=== PATIENT | female | born 1960 | race Caucasian/White ===

== ENCOUNTER → 2019-06-18 | Outpatient (CLI) | payer BC, MEDICARE ==
[~2019-06-18] MED LIST: CATHETER FLUSH 10 ML SYR IV PRN; HOLD METFORMIN - RECEIVED CONTRAST 20 ML VIAL IV SCH; IOHEXOL 350 MG/ML 100 ML (OMNIPAQUE 350) VIAL IV ONE; NS 100 ML (IVPB) BAG IV ONE
[2019-06-18 09:19] LABS: BUN/CREATININE RATIO 23; CARBON DIOXIDE 29 MMOL/L (21-32); CHLORIDE 99 MMOL/L (98-107); GFR ESTIMATED > 60; POTASSIUM 4.1 MMOL/L (3.6-5.0); SODIUM 139 MMOL/L (135-145)
[2019-06-18 09:20] LABS: ALANINE AMINOTRANSFERASE 27 U/L (0-55); ALBUMIN 3.8 GM/DL (3.2-4.5); ALKALINE PHOSPHATASE 142 U/L (40-136); BILIRUBIN,TOTAL 0.2 MG/DL (0.1-1.0); CALCIUM 8.8 MG/DL (8.5-10.1); GLUCOSE 142 MG/DL (70-105); TOTAL PROTEIN 6.7 GM/DL (6.4-8.2)
--- NOTE | 2019-06-18 10:24 | Diagnostic Imaging Report ---
PROCEDURE: CT abdomen with and without contrast. TECHNIQUE: Multiple contiguous axial CT images of the abdomen were obtained prior to and after intravenous administration of iodinated contrast. Auto Exposure Controls were utilized during the CT exam to meet ALARA standards for radiation dose reduction. INDICATION: 20 years history of intermittent abdominal pain, history of pancreatic cyst and nonalcoholic hepatic steatosis. COMPARISON: No priors. FINDINGS: The liver density suggests a mild degree of fatty infiltration. No identifiable liver mass. The gallbladder is surgically absent. The bile ducts are not pathologically distended. There is a unilocular simple appearing cyst without septation, mural nodularity enhancing or soft tissue component within the pancreas and the tail measuring 2.2 cm in diameter. Given the history this is presumed a known finding. If prior outside studies are available for comparison and are submitted, an addendum addressing interval change or stability would be provided upon receipt. The pancreas appeared otherwise unremarkable. Its duct appeared unremarkable. The spleen, adrenals and kidneys are negative. There is no bowel obstruction. There is no abdominal ascites. No abdominal mesenteric or retroperitoneal lymphadenopathy. The lung bases appeared nonacute. The osseous structures are nonacute. IMPRESSION: 1. Likely mild fatty infiltration of the liver. 2. Unilocular appearing pancreatic parenchymal cyst is alluded to in the provided history. It is 2.2 cm today without obvious complexity. Correlation with priors would be helpful if available. Submission encouraged and an addendum would be provided. 3. No obstructive phenomenon, inflammatory process, soft tissue mass or acute appearing abnormalitiess. Dictated by: Dictated on workstation # [id number]
== END ==
LOC: LAB FS 08:18
PROVIDERS: ATTEND Internal Medicine
DX: K75.81 Nonalcoholic steatohepatitis (NASH) (principal)
CPT/HCPCS: 36415; 74170; 80053

== ENCOUNTER → 2019-06-18 | Outpatient (CLI) | payer MEDICARE ==
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
== END ==
LOC: RAD FS 08:29
PROVIDERS: ATTEND Orthopaedic Surgery
DX: Z48.89 Encounter for other specified surgical aftercare (principal); S92.002D Unspecified fracture of left calcaneus, subsequent encounter for fracture with routine healing; Z96.9 Presence of functional implant, unspecified
CPT/HCPCS: 73700

== ENCOUNTER → 2019-11-05 | Outpatient (CLI) | payer MEDICARE ==
--- NOTE | 2019-11-05 10:24 | Diagnostic Imaging Report ---
PROCEDURE: CT left lower extremity without contrast. TECHNIQUE: Multiple contiguous axial images were obtained through the left lower extremity without the use of intravenous contrast. Sagittal and coronal reformations were then performed. Auto Exposure Controls were utilized during the CT exam to meet ALARA standards for radiation dose reduction. INDICATION: Previous calcaneal fracture. Status post ORIF. COMPARISON: 06/18/2019 FINDINGS: Patient is status post previous ORIF of the left calcaneus. Orthopedic sideplate is again identified traversing the lateral margins of the calcaneal body. Orthopedic sideplate appears well opposed underlying calcaneus. Multiple anchor screws are also identified and appear well-seated. There is no periprosthetic lucency to suggest loosening. No unexpected radiopaque foreign bodies are identified. Nonacute comminuted fracture of the left calcaneus is also again seen. Fracture lines remain conspicuous. There has, however been interval progression of bridging callus formation and development of sclerotic change. This is most conspicuous involving the inferolateral margins of the fracture line (image 44, series 200 on today's exam, in comparison to image 42, series 200 on prior study). There is no new acute fracture or dislocation. Joint spaces remain intact. Overlying soft tissue structures show expected edema. No loculated fluid collections are identified. IMPRESSION: 1. Redemonstration postsurgical changes of prior ORIF of the left ankle. There is no evidence of hardware fracture or failure. 2. Comminuted fractures of the left calcaneus are again identified. Fracture fragments remain in stable position. There has been some partial interval healing when compared to prior exam. Dictated by: Dictated on workstation # [id number]
== END ==
LOC: RAD FS 09:16
PROVIDERS: ATTEND Orthopaedic Surgery
DX: S99.0 Physeal fracture of calcaneus (principal); Z96.9 Presence of functional implant, unspecified; Z96.662 Presence of left artificial ankle joint
CPT/HCPCS: 73700

== ENCOUNTER 2020-10-20 12:53 | Emergency (ER) | payer MEDICARE ==
[~2020-10-20] VITALS: Ht 157.4 cm; Wt 104.5 kg
[2020-10-20] MEDS ORDERED: morphine INJ 10 MG/ML 1ML (SYR OR VIAL) IVP STA (13:06)
[2020-10-20] MEDS ORDERED: ONDANSETRON 4 MG/2 ML (SDV) Z0FRAN IVP ONE (13:15)
[2020-10-20] MEDS ORDERED: NS IV 1000 ML 1,000 ML IV SCH ×2 (13:15→13:45)
[2020-10-20 13:17] LABS: HEMATOCRIT 47 % (35-52); HEMOGLOBIN 15.6 G/DL (11.5-16.0); MEAN CORPUSCULAR HEMOGLOBIN 30 PG (25-34); MEAN CORPUSCULAR HGB CONC 33 G/DL (32-36); MEAN CORPUSCULAR VOLUME 91 FL (80-99); MEAN PLATELET VOLUME 10.5 FL (7.4-10.4); NEUTROPHILS % (AUTO) 81 % (42-75); PLATELET COUNT 415 10^3/uL (130-400); WHITE BLOOD COUNT 24.3 10^3/uL (4.3-11.0)
[2020-10-20 13:18] LABS: BASOPHILS # (AUTO) 0.1 10^3/uL (0.0-0.1); BASOPHILS % (AUTO) 0 % (0-10); EOSINOPHILS # (AUTO) 0.3 10^3/uL (0.0-0.3); EOSINOPHILS % (AUTO) 1 % (0-10); LYMPHOCYTES # (AUTO) 2.7 X 10^3 (1.0-4.0); LYMPHOCYTES % (AUTO) 11 % (12-44); MONOCYTES # (AUTO) 1.6 X 10^3 (0.0-1.0); MONOCYTES % (AUTO) 7 % (0-12); NEUTROPHILS # (AUTO) 19.6 X 10^3 (1.8-7.8)
--- NOTE | 2020-10-20 13:28 | ED Abdominal Pain ---
General Chief Complaint: Abdominal/GI Problems Stated Complaint: EPIGASTRIC PAIN; VOMITING; DIARRHEA Source of Information: Patient Exam Limitations: No Limitations History of Present Illness Date Seen by Provider: Oct 20, 2020 Time Seen by Provider: 13:00 Initial Comments Patient is a 60-year-old female with history of chronic pancreatitis who presents with epigastric abdominal pain radiating to posterior back. Pain is described as sharp rated moderate to severe right and waxes and wanes. It is continuous but nonprogressive. Current episode started s yesterday morning.. Patient reports nausea and vomiting. She also reports watery stools. No fever chills, sweats. No recent antibiotics, travel or camping. Denies hematemesis coffee-ground emesis, melena, hematochezia. Pain feels similar in location pattern and severity as prior episodes of pancreatitis. Patient does have a history of calcified pseudocyst and is managed by [facility]. She states she takes hydrocodone's every 4 hours during the daytime and has an appointment to see her GI specialist at [facility] in 1 week. She was last evaluated at an outside ED 2 weeks ago for similar complaints and had a IV contrast CT of her abdomen pelvis performed at that time which showed known pseudocyst. Denies chest pain palpitations, shortness of breath. No fever cough, sore throat. No other acute symptoms or complaints. Timing/Duration: 1-2 Days Severity/Quality: Sharp Location: Other Radiation: Other Modifying Factors: Improves With Other Associated Symptoms: Other Allergies and Home Medications Allergies Coded Allergies: nitrofurantoin (Unverified Allergy, Mild, COUGH, 06/18/19) PNEUMONIA TYPE SYMPTOMS, CHOKING A LITTLE Sulfa (Sulfonamide Antibiotics) (Unverified Adverse Reaction, Unknown, 10/20/20) Patient Home Medication List Home Medication List Reviewed: Yes Review of Systems Review of Systems Constitutional: see HPI EENTM: See HPI Respiratory: See HPI Cardiovascular: See HPI Gastrointestinal: See HPI Genitourinary: See HPI Musculoskeletal: see HPI Skin: see HPI Psychiatric/Neurological: See HPI Endocrine: See HPI Hematologic/Lymphatic: See HPI All Other Systems Reviewed Negative Unless Noted: Yes Past Iikcisq-Ekuvmg-Kussjy Hx Past Med/Social Hx: Reviewed Nursing Past Med/Soc Hx Physical Exam Vital Signs Vital Signs - First Documented 10/20/20 12:56 Temp 36.8 Pulse 97 Resp 20 B/P (MAP) 154/77 (102) O2 Delivery Room Air Capillary Refill : Height/Weight/BMI Height: '" Weight: lbs. oz. kg; BMI Method: General Appearance: moderate distress HEENT: PERRL/EOMI, normal ENT inspection, pharynx normal Neck: non-tender, full range of motion, supple Respiratory: chest non-tender, lungs clear Cardiovascular: normal peripheral pulses, regular rate, rhythm Gastrointestinal: soft; No guarding, No rebound; tenderness; No hernia, No mass; other Extremities: normal range of motion, non-tender, normal inspection Back: normal inspection, no CVA tenderness, no vertebral tenderness Neurologic/Psychiatric: hydrogenation still operator II-XII nml as tested, no motor/sensory deficits, alert, oriented x 3, other Focused Exam Sepsis Stage: Ruled Out Lactate Level 10/20/20 13:50: Lactic Acid Level 1.40 Lactic Acid Level Laboratory Tests Test 10/20/20 13:50 Lactic Acid Level 1.40 MMOL/L (0.50-2.00) Progress/Results/Core Measures Results/Orders Lab Results Laboratory Tests Test 10/20/20 12:58 10/20/20 13:50 10/20/20 14:51 Range/Units White Blood Count 24.3 H 4.3-11.0 10^3/uL Red Blood Count 5.20 4.35-5.85 10^6/uL Hemoglobin 15.6 11.5-16.0 G/DL Hematocrit 47 35-52 % Mean Corpuscular Volume 91 80-99 FL Mean Corpuscular Hemoglobin 30 25-34 PG Mean Corpuscular Hemoglobin Concent 33 32-36 G/DL Red Cell Distribution Width 13.1 10.0-14.5 % Platelet Count 415 H 130-400 10^3/uL Mean Platelet Volume 10.5 H 7.4-10.4 FL Immature Granulocyte % (Auto) 0 % Neutrophils (%) (Auto) 81 H 42-75 % Lymphocytes (%) (Auto) 11 L 12-44 % Monocytes (%) (Auto) 7 0-12 % Eosinophils (%) (Auto) 1 0-10 % Basophils (%) (Auto) 0 0-10 % Neutrophils # (Auto) 19.6 H 1.8-7.8 X 10^3 Lymphocytes # (Auto) 2.7 1.0-4.0 X 10^3 Monocytes # (Auto) 1.6 H 0.0-1.0 X 10^3 Eosinophils # (Auto) 0.3 0.0-0.3 10^3/uL Basophils # (Auto) 0.1 0.0-0.1 10^3/uL Immature Granulocyte # (Auto) 0.1 0.0-0.1 10^3/uL Neutrophils % (Manual) 71 % Lymphocytes % (Manual) 14 % Monocytes % (Manual) 6 % Eosinophils % (Manual) 1 % Basophils % (Manual) 1 % Band Neutrophils 7 % Sodium Level 137 135-145 MMOL/L Potassium Level 4.3 3.6-5.0 MMOL/L Chloride Level 100 98-107 MMOL/L Carbon Dioxide Level 24 21-32 MMOL/L Anion Gap 13 5-14 MMOL/L Blood Urea Nitrogen 15 7-18 MG/DL Creatinine 0.68 0.60-1.30 MG/DL Estimat Glomerular Filtration Rate > 60 BUN/Creatinine Ratio 22 Glucose Level 190 H 70-105 MG/DL Calcium Level 8.6 8.5-10.1 MG/DL Corrected Calcium 8.5 8.5-10.1 MG/DL Total Bilirubin 0.5 0.1-1.0 MG/DL Aspartate Amino Transf (AST/SGOT) 50 H 5-34 U/L Alanine Aminotransferase (ALT/SGPT) 46 0-55 U/L Alkaline Phosphatase 174 H 40-136 U/L C-Reactive Protein 0.87 H <0.50 MG/DL Total Protein 7.1 6.4-8.2 GM/DL Albumin 4.1 3.2-4.5 GM/DL Lipase 34 8-78 U/L Lactic Acid Level 1.40 0.50-2.00 MMOL/L Urine Color YELLOW Urine Clarity CLEAR Urine pH 5.5 5-9 Urine Specific Clyde 1.010 L 1.016-1.022 Urine Protein NEGATIVE NEGATIVE Urine Glucose (UA) NEGATIVE NEGATIVE Urine Ketones NEGATIVE NEGATIVE Urine Nitrite NEGATIVE NEGATIVE Urine Bilirubin NEGATIVE NEGATIVE Urine Urobilinogen 0.2 < = 1.0 MG/DL Urine Leukocyte Esterase NEGATIVE NEGATIVE Urine RBC (Auto) NEGATIVE NEGATIVE Urine RBC NONE /HPF Urine WBC RARE /HPF Urine Squamous Epithelial Cells 0-2 /HPF Urine Crystals NONE /LPF Urine Bacteria NEGATIVE /HPF Urine Casts NONE /LPF Urine Mucus NEGATIVE /LPF Urine Culture Indicated NO My Orders Orders - DENNISE GLOVER DO Cbc With Automated Diff (10/20/20 13:06) Comprehensive Metabolic Panel (10/20/20 13:06) Lipase (10/20/20 13:06) Ua Culture If Indicated (10/20/20 13:06) Morphine Injection (Morphine Injection (10/20/20 13:06) Ondansetron Injection (Zofran Injectio (10/20/20 13:15) Ns Iv 1000 Ml (Sodium Chloride 0.9%) (10/20/20 13:15) Manual Differential (10/20/20 12:58) Hs C Reactive Protein (10/20/20 13:45) Lactic Acid Analyzer (10/20/20 13:45) Blood Culture (10/20/20 13:45) Ns Iv 1000 Ml (Sodium Chloride 0.9%) (10/20/20 13:45) Ct Abdomen/Pelvis W (10/20/20 13:48) Iohexol Injection (Omnipaque 350 Mg/Ml 1 (10/20/20 14:00) Received Contrast (Hold Metformin- Contr (10/20/20 14:00) Sodium Chloride Flush (Catheter Flush Sy (10/20/20 14:00) Ns (Ivpb) (Sodium Chloride 0.9% Ivpb Bag (10/20/20 14:00) Blood Culture (10/20/20 13:52) Crp Fs (10/20/20 14:06) Medications Given in ED Current Medications Medications Dose Ordered Sig/Keira Route Start Time Stop Time Status Last Admin Dose Admin Iohexol 100 ml ONCE ONCE IV 10/20/20 14:00 10/20/20 14:01 DC 10/20/20 14:15 100 ML Ondansetron HCl 4 mg ONCE ONCE IVP 10/20/20 13:15 10/20/20 13:16 DC 10/20/20 13:12 4 MG Sodium Chloride 10 ml NEEDED PRN IV 10/20/20 14:00 10/20/20 14:15 10 ML Sodium Chloride 100 ml ONCE ONCE IV 10/20/20 14:00 10/20/20 14:01 DC 10/20/20 14:15 72 ML Vital Signs/I&O 10/20/20 12:56 Temp 36.8 Pulse 97 Resp 20 B/P (MAP) 154/77 (102) O2 Delivery Room Air Departure Communication (Admissions) CT abdomen pelvis: Simple pancreatic cyst increased in size from previous study. Multiple fluid filled loops of small bowel consistent with enteritis per radiology report. Epigastric pain nausea vomiting with diarrhea. Patient has had similar symptoms [address] findings suggestive of enteritis. Patient with markedly elevated white blood cell count with normal lactic acid and mild elevation in C- reactive protein. Vital signs stable. Symptoms improved with fluids and pain medication. Patient unable to provide stool study in the emergency department. Will obtain outpatient study and place on antibiotics pending results. Recommend patient follow-up with PCP on Saturday. Return precautions reviewed. Patient verbalizes understanding agreement discharge instructions prior to departure. Impression Primary Impression: Abdominal pain Additional Impression: Enteritis Disposition: HOME, SELF-CARE Condition: Stable Departure-Patient Inst. Decision time for Depature: 15:26 Referrals: BRYAN HINOJOSA MD (PCP/Family) Primary Care Physician Patient Instructions: Abdominal Pain, Adult ED, Diarrhea in Adolescents and Adults Add. Discharge Instructions: Please fill antibiotics and continue current home pain medication. Do not start antibiotics until you are able to obtain an return stool sample to the emergency department registration area. Contact your PCP and schedule follow-up appointment for Saturday. Return to the ED if new or worsening symptoms. All discharge instructions reviewed with patient and/or family. Voiced understanding. Scripts Metronidazole (Flagyl) 500 Mg Tablet 500 MG PO TID, #21 TAB Prov: DENNISE GLOVER DO 10/20/20 Ciprofloxacin HCl (Ciprofloxacin HCl) 500 Mg Tablet 500 MG PO BID, #14 TAB Prov: DENNISE GLOVER DO 10/20/20 DENNISE GLOVER DO Oct 20, 2020 13:28
[2020-10-20 13:30] LABS: BUN/CREATININE RATIO 22; CARBON DIOXIDE 24 MMOL/L (21-32); CHLORIDE 100 MMOL/L (98-107); CREATININE SERUM 0.68 MG/DL (0.60-1.30); GFR ESTIMATED > 60; GLUCOSE 190 MG/DL (70-105); POTASSIUM 4.3 MMOL/L (3.6-5.0); SODIUM 137 MMOL/L (135-145)
[2020-10-20 13:31] LABS: ALANINE AMINOTRANSFERASE 46 U/L (0-55); ALBUMIN 4.1 GM/DL (3.2-4.5); ALKALINE PHOSPHATASE 174 U/L (40-136); BILIRUBIN,TOTAL 0.5 MG/DL (0.1-1.0); CALCIUM 8.6 MG/DL (8.5-10.1); LIPASE 34 U/L (8-78); TOTAL PROTEIN 7.1 GM/DL (6.4-8.2)
[2020-10-20 13:38] LABS: BAND NEUTROPHILS 7 %; LYMPHOCYTES % (MANUAL) 14 %; MONOCYTES % (MANUAL) 6 %; NEUTROPHILS % (MANUAL) 71 %
[2020-10-20 13:39] LABS: BASOPHILS % (MANUAL) 1 %; EOSINOPHILS % (MANUAL) 1 %
[2020-10-20] MEDS ORDERED: HOLD METFORMIN - RECEIVED CONTRAST 20 ML VIAL IV SCH (14:00)
[2020-10-20] MEDS ORDERED: IOHEXOL 350 MG/ML 100 ML (OMNIPAQUE 350) VIAL IV ONE (14:00)
[2020-10-20] MEDS ORDERED: CATHETER FLUSH 10 ML SYR IV PRN (14:00)
[2020-10-20] MEDS ORDERED: NS 100 ML (IVPB) BAG IV ONE (14:00)
[2020-10-20] MEDS ORDERED: ALPR0.254 (14:05)
[2020-10-20] MEDS ORDERED: LEVO200T62 (14:05)
[2020-10-20] MEDS ORDERED: GLIM4TAB5 (14:05)
[2020-10-20] MEDS ORDERED: TEMA15CA (14:05)
[2020-10-20] MEDS ORDERED: ATOR80TA76 (14:05)
[2020-10-20] MEDS ORDERED: DULA0.75 (14:05)
[2020-10-20] MEDS ORDERED: PROM25TA14 (14:05)
[2020-10-20] MEDS ORDERED: VNL75T (14:05)
[2020-10-20] MEDS ORDERED: ROPI3TAB4 (14:05)
[2020-10-20] MEDS ORDERED: METF-865 (14:05)
[2020-10-20] MEDS ORDERED: SUCR1TAB (14:05)
[2020-10-20] MEDS ORDERED: HYDR-3820 (14:05)
[2020-10-20] MEDS ORDERED: ESOM40CA52 (14:05)
[2020-10-20] MEDS ORDERED: LISI20TA26 (14:05)
--- NOTE | 2020-10-20 14:52 | Diagnostic Imaging Report ---
PROCEDURE: CT abdomen and pelvis with contrast. TECHNIQUE: Multiple contiguous axial images were obtained through the abdomen and pelvis after administration of intravenous contrast. Auto Exposure Controls were utilized during the CT exam to meet ALARA standards for radiation dose reduction. All CT scans use one or more of the following dose optimizing techniques: automated exposure control, MA and/or KvP adjustment based on patient size and exam type or iterative reconstruction. INDICATION: Abdominal pain. History of previous pancreatitis. FINDINGS: There is a round cyst demonstrated again within the tail of pancreas which has a simple appearance with smooth wall. This has increased in size today measuring 3.3 cm previously measuring approximately 2.5 cm. This shows no evidence of enhancement following IV contrast. The remainder of the pancreas appears normal. There is no edema. Pancreatic ducts not dilated. Common bile ducts are not dilated. Gallbladder is absent. There is mild hepatomegaly with diffuse fatty change of the liver. Spleen appears normal. The adrenal glands and kidneys are normal. There is normal enhancement of the kidneys. Aorta and abdominal vessels show normal enhancement with minimal atherosclerotic change. The stomach and small bowel are fluid-filled though no evidence of obstruction. There is a small amount of liquid stool within the colon. No solid stool demonstrated. There are a few diverticuli though no changes are seen that would indicate diverticulitis or colitis. No intra-abdominal adenopathy of pathologic size. No free fluid or free air. No blastic or lytic bony changes. IMPRESSION: 1. Simple appearing cyst in the distal pancreas measuring 3.3 cm. This has increased in size since previous exam 06/18/19. 2. The fluid-filled small bowel as well as liquid stool suggesting probable enteritis. There is no evidence of mechanical obstruction. No evidence of colitis or diverticulitis. Dictated by: Dictated on workstation # [id number]
[2020-10-20 15:04] LABS: BACTERIA,URINE NEGATIVE /HPF; BILIRUBIN,URINE NEGATIVE (NEGATIVE); CLARITY,URINE CLEAR; COLOR,URINE YELLOW; GLUCOSE, URINE (UA) NEGATIVE (NEGATIVE); KETONES,URINE NEGATIVE (NEGATIVE); LEUKOCYTE ESTERASE ,URINE NEGATIVE (NEGATIVE); NITRITE,URINE NEGATIVE (NEGATIVE); PH,URINE 5.5 (5-9); PROTEIN,URINE NEGATIVE (NEGATIVE); SQUAMOUS EPITHELIAL CELL,UR 0-2 /HPF; WBC,URINE RARE /HPF
[2020-10-20] MEDS ORDERED: CIPR500T5 PO (15:29)
[2020-10-20] MEDS ORDERED: METR500T PO (15:29)
[2020-10-20 15:48] VITALS: BP 155/62
== END 2020-10-20 15:35 | disposition home or self-care (01) ==
LOC: EDUNIT# 12:53 → ER FS 12:54
DX: K52.9 Noninfective gastroenteritis and colitis, unspecified (principal)
CPT/HCPCS: 36415; 74177; 80053; 81000; 83605; 83690; 85007; 85027; 86141; 87040

== ENCOUNTER → 2020-10-20 | Outpatient (CLI) | payer MEDICARE ==
[~2020-10-20] MED LIST changes: +ALPR0.254; +ATOR80TA76; -CATHETER FLUSH 10 ML SYR IV PRN; +CIPR500T5 PO; +DULA0.75; +ESOM40CA52; +GLIM4TAB5; -HOLD METFORMIN - RECEIVED CONTRAST 20 ML VIAL IV SCH; +HYDR-3820; -IOHEXOL 350 MG/ML 100 ML (OMNIPAQUE 350) VIAL IV ONE; +LEVO200T62; +LISI20TA26; +METF-865; +METR500T PO; -NS 100 ML (IVPB) BAG IV ONE; +PROM25TA14; +ROPI3TAB4; +SUCR1TAB; +TEMA15CA; +VNL75T
== END ==
LOC: LAB FS 18:11
PROVIDERS: ATTEND Emergency Medicine
DX: K52.9 Noninfective gastroenteritis and colitis, unspecified (principal)
CPT/HCPCS: 82274; 87015; 87045; 87046; 87324; 87449; 87899

== ENCOUNTER → 2021-01-11 | Outpatient (CLI) | payer MEDICARE ==
[2021-01-11 10:10] LABS: HEMATOCRIT 42 % (35-52); HEMOGLOBIN 13.7 g/dL (11.5-16.0); MEAN CORPUSCULAR HEMOGLOBIN 30 pg (25-34); MEAN CORPUSCULAR HGB CONC 33 g/dL (32-36); MEAN CORPUSCULAR VOLUME 93 fL (80-99); WHITE BLOOD COUNT 9.5 10^3/uL (4.3-11.0)
[2021-01-11 10:11] LABS: BASOPHILS % (AUTO) 0 % (0-10); EOSINOPHILS # (AUTO) 0.2 10^3/uL (0.0-0.3); EOSINOPHILS % (AUTO) 2 % (0-10); LYMPHOCYTES # (AUTO) 2.3 X 10^3 (1.0-4.0); LYMPHOCYTES % (AUTO) 24 % (12-44); MEAN PLATELET VOLUME 10.3 fL (9.0-12.2); MONOCYTES # (AUTO) 1.1 X 10^3 (0.0-1.0); MONOCYTES % (AUTO) 12 % (0-12); NEUTROPHILS # (AUTO) 5.9 X 10^3 (1.8-7.8); NEUTROPHILS % (AUTO) 62 % (42-75); PLATELET COUNT 357 10^3/uL (130-400)
[2021-01-11 11:00] LABS: POTASSIUM 3.9 MMOL/L (3.6-5.0)
[2021-01-11 11:01] LABS: ALBUMIN 3.7 GM/DL (3.2-4.5); BILIRUBIN,TOTAL 0.3 MG/DL (0.1-1.0); CALCIUM 7.7 MG/DL (8.5-10.1); CREATININE SERUM 0.73 MG/DL (0.60-1.30); TOTAL PROTEIN 6.6 GM/DL (6.4-8.2)
== END ==
LOC: LAB FS 09:12
PROVIDERS: ATTEND Family Medicine
DX: K85.90 Acute pancreatitis without necrosis or infection, unspecified (principal)
CPT/HCPCS: 36415; 80053; 83690; 85025

== ENCOUNTER → 2021-03-30 | Outpatient (CLI) | payer MEDICARE ==
--- NOTE | 2021-03-30 10:48 | Diagnostic Imaging Report ---
PROCEDURE: US carotid duplex, bilateral. TECHNIQUE: Multiple real-time grayscale images were obtained over the carotid arteries in various projections, bilaterally. Additional spectral analysis and color Doppler duplex images were also obtained. INDICATION: Syncope with fall Parameters based on the consensus panel Givens-Scale and Doppler ultrasound criteria published February 2003, Radiology, Volume 229. DOPPLER (peak systolic velocity M/S Right Left CCA 1.10 1.07 ICA Proximal .88 .94 ICA Mid 1.30 1.08 ICA Distal 1.09 .96 RATIO 1.18 1.01 ECA 1.73 1.63 VERT .58 .51 Mild plaque is seen within the carotid bulbs and bifurcations. Waveforms are normal. Normal antegrade flow within both vertebral arteries. IMPRESSION: 1. Atherosclerosis with minimally increased velocities within the mid right ICA which can be seen with less than 50-69% stenosis although no visualized stenosis is seen and ratio suggests less than 50%. 2. No hemodynamically significant stenosis of the left internal carotid artery by velocity or ratio criteria. Dictated by: Dictated on workstation # [id number]
== END ==
LOC: CARD 08:19
PROVIDERS: ATTEND Internal Medicine Cardiovascular Disease
DX: I44.7 Left bundle-branch block, unspecified (principal); I25.10 Atherosclerotic heart disease of native coronary artery without angina pectoris; R55 Syncope and collapse; W19.XXXA Unspecified fall, initial encounter
CPT/HCPCS: 93225; 93226; 93306; 93880

== ENCOUNTER → 2021-04-27 | Outpatient (CLI) | payer MEDICARE ==
[~2021-04-27] MED LIST changes: +CATHETER FLUSH 10 ML SYR IV PRN; +REGADENOSON 0.4 MG/5 ML SYR (LEXISCAN) IV ONE
[2021-04-27 13:26] VITALS: BP 110/70
--- NOTE | 2021-04-29 16:30 | NUCLEAR STRESS TEST ---
REGADENOSON NUCLEAR STRESS Date of procedure: 04/27/2021. Primary care provider: Sanket James MD Admitting physician: Kraig Ashby Jr., MD. INDICATION: Left bundle branch block. BASELINE ELECTROCARDIOGRAM: Sinus rhythm with left bundle branch block STRESS TEST PROCEDURE: The patient was administered 0.4 mg of intravenous Regadenoson. The resting heart rate was 71 bpm and the peak heart rate was 94 bpm. The resting blood pressure was 110/77 mmHg and the minimum blood pressure was 110/77 mmHg. This represents a normal heart rate and a blunted blood pressure response to Regadenoson. The test was stopped due to the protocol. There was no chest discomfort during the test. There were no arrhythmias during the test. The stress electrocardiogram was indeterminate due to the left bundle branch block. NUCLEAR PROCEDURE: The patient was administered 9.8 mCi of intravenous technetium 99m Tetrofosmin at rest for the rest images. The patient was subsequently administered 30.6 mCi of intravenous technetium 99m Tetrofosmin at peak stress for the stress images. Following an appropriate wait after each injection, imaging was obtained. The images were subsequently processed and reformatted in the usual views. Gated imaging was obtained. The image quality was adequate but with gastrointestinal and breast attenuation artifact. CT attenuation correction was used as a adjunct to standard imaging. Both the corrected and uncorrected images were reviewed for interpretation. NUCLEAR RESULTS: There was normal myocardial perfusion in all segments, other than breast attenuation artifact, without evidence of infarction or ischemia. There was normal left ventricular chamber size with an end-diastolic volume of 66 mL and an end-systolic volume of 21 mL. There was no evidence of transient ischemic dilatation. The TID ratio was 1.02. There was normal wall motion in all segments with a calculated ejection fraction of 67%. IMPRESSION: 1. Normal heart rate and a blunted blood pressure response to regadenoson. 2. There was no chest discomfort or arrhythmias during the test. 3. The stress electrocardiogram was indeterminate due to the left bundle branch block. 4. There was normal myocardial perfusion in all segments, other than breast attenuation artifact, without evidence of infarction or ischemia. 5. There was normal wall motion in all segments with a calculated ejection fraction of 67%. Certain portions of this document may have been dictated utilizing voice recognition technology. Inherent to this technology, typographical and grammatical errors may exist. As much as I am diligent to identify and correct these mistakes, some errors may remain in the document. KRAIG ASHBY JR, MD Apr 29, 2021 16:30
== END ==
LOC: CARD 12:00
PROVIDERS: ATTEND Internal Medicine Cardiovascular Disease
DX: I44.7 Left bundle-branch block, unspecified (principal)
CPT/HCPCS: 78452; 93017; A9502

== ENCOUNTER 2021-07-02 14:44 | Observation (INO) | payer MEDICARE ==
[~2021-07-02] VITALS: Ht 157.4 cm; Wt 98.7 kg
[~2021-07-02 14:44] MED LIST changes: -ALPR0.254; +ALPR0.254 PO; -ATOR80TA76; +ATOR80TA76 PO; -CATHETER FLUSH 10 ML SYR IV PRN; -DULA0.75; +DULA0.75 SC; -ESOM40CA52; +ESOM40CA52 PO; -GLIM4TAB5; +GLIM4TAB5 PO; -HYDR-3820; +HYDR-3820 PO; -LEVO200T62; +LEVO200T62 PO; -LISI20TA26; +LISI20TA26 PO; -METF-865; +METF-865 PO; -REGADENOSON 0.4 MG/5 ML SYR (LEXISCAN) IV ONE; -ROPI3TAB4; +ROPI3TAB4 PO; -TEMA15CA; +TEMA15CA PO; -VNL75T; +VNL75T PO
--- NOTE | 2021-07-02 14:47 | ED GI ---
General Chief Complaint: Abdominal/GI Problems Stated Complaint: VOMITING; EPIGASTRIC PAIN History of Present Illness Date Seen by Provider: Jul 02, 2021 Time Seen by Provider: 14:47 Initial Comments 61-year-old female presents with abdominal pain, nausea, vomiting and diarrhea. Patient reports that symptoms started last night. That her "liver and pancreas is acting up" that she has a history of similar symptoms with her last episode about a year ago. Reports that she is having difficulty keeping anything down. She denies any fever, cough. Patient's pain is mainly epigastric but she does have some diffuse abdominal pain. Allergies and Home Medications Allergies Coded Allergies: nitrofurantoin (Unverified Allergy, Mild, COUGH, 06/18/19) PNEUMONIA TYPE SYMPTOMS, CHOKING A LITTLE Sulfa (Sulfonamide Antibiotics) (Unverified Adverse Reaction, Unknown, 10/20/20) Patient Home Medication List Home Medication List Reviewed: Yes ALPRAZolam (ALPRAZolam) 0.25 Mg Tablet, (Reported) Entered as Reported by: ALESSANDRO BAUGH on 10/20/20 1405 Atorvastatin Calcium (Atorvastatin Calcium) 80 Mg Tablet, (Reported) Entered as Reported by: ALESSANDRO BAUGH on 10/20/20 1405 Ciprofloxacin HCl (Ciprofloxacin HCl) 500 Mg Tablet, 500 MG PO BID Prescribed by: DENNISE GLOVER on 10/20/20 1529 Dulaglutide (Trulicity) 0.75 Mg/0.5 Ml Pen.injctr, (Reported) Entered as Reported by: ALESSANDRO BAUGH on 10/20/20 1405 Esomeprazole Magnesium (Esomeprazole Magnesium) 40 Mg Capsule., (Reported) Entered as Reported by: ALESSANDRO BAUGH on 10/20/20 1405 Glimepiride (Glimepiride) 4 Mg Tablet, (Reported) Entered as Reported by: ALESSANDRO BAUGH on 10/20/20 1405 Hydrocodone/Acetaminophen (Hydrocodone-Acetamin 10-325 mg) 1 Each Tablet, (Reported) Entered as Reported by: ALESSANDRO BAUGH on 10/20/20 140 Levothyroxine Sodium (Euthyrox) 200 Mcg Tablet, (Reported) Entered as Reported by: ALESSANDRO BAUGH on 10/20/20 1405 Lisinopril (Lisinopril) 20 Mg Tablet, (Reported) Entered as Reported by: ALESSANDRO BAUGH on 10/20/20 140 Metformin HCl (Metformin HCl ER) 500 Mg Tab.er.24h, (Reported) Entered as Reported by: ALESSANDRO BAUGH on 10/20/20 140 Metronidazole (Flagyl) 500 Mg Tablet, 500 MG PO TID Prescribed by: DENNISE GLOVER on 10/20/20 1529 Promethazine HCl (Promethazine Tablet) 25 Mg Tablet, (Reported) Entered as Reported by: ALESSANDRO BAUGH on 10/20/20 140 Ropinirole HCl (Ropinirole HCl) 3 Mg Tablet, (Reported) Entered as Reported by: ALESSANDRO BAUGH on 10/20/20 140 Sucralfate (Sucralfate) 1 Gm Tablet, (Reported) Entered as Reported by: ALESSANDRO BAUGH on 10/20/20 140 Temazepam (Temazepam) 15 Mg Capsule, (Reported) Entered as Reported by: ALESSANDRO BAUGH on 10/20/20 140 Venlafaxine HCl (Venlafaxine HCl) 75 Mg Tab, (Reported) Entered as Reported by: ALESSANDRO BAUGH on 10/20/20 140 Review of Systems Review of Systems Constitutional: No chills, No fever Respiratory: Denies Cough, Denies Shortness of Air Cardiovascular: Denies Chest Pain, Denies Lightheadedness, Denies Palpitations Gastrointestinal: Abdominal Pain, Diarrhea, Nausea, Vomiting Genitourinary: No Symptoms Reported Musculoskeletal: no symptoms reported Skin: no symptoms reported Psychiatric/Neurological: No Symptoms Reported Endocrine: No Symptoms Reported Past Hhfusxq-Rekape-Hvyshp Hx Seasonal Allergies Seasonal Allergies: No Past Medical History Surgeries: Yes (L foot) Orthopedic Respiratory: No Cardiac: No Neurological: No Genitourinary: No Gastrointestinal: Yes Pancreatitis Musculoskeletal: Yes Fractures Endocrine: No HEENT: No Cancer: No Psychosocial: No Integumentary: No Blood Disorders: No Physical Exam Vital Signs Vital Signs - First Documented 07/02/21 14:47 Temp 36.8 Pulse 107 Resp 18 B/P (MAP) 158/69 (98) Pulse Ox 96 O2 Delivery Room Air Capillary Refill : Height/Weight/BMI Height: '" Weight: lbs. oz. kg; 42.00 BMI Method: General Appearance: mild distress HEENT: PERRL/EOMI Neck: full range of motion Respiratory: lungs clear, normal breath sounds Cardiovascular: normal peripheral pulses, regular rate, rhythm Gastrointestinal: soft, tenderness (Diffuse) Extremities: normal range of motion Neurologic/Psychiatric: alert, normal mood/affect, oriented x 3 Skin: normal color, warm/dry Focused Exam Lactate Level 07/02/21 15:02: Lactic Acid Level 2.57*H Lactic Acid Level Laboratory Tests Test 07/02/21 15:02 Lactic Acid Level 2.57 MMOL/L (0.50-2.00) *H Progress/Results/Core Measures Results/Orders Lab Results Laboratory Tests Test 07/02/21 14:50 07/02/21 15:02 Range/Units White Blood Count 10.8 4.3-11.0 10^3/uL Red Blood Count 5.32 H 3.80-5.11 10^6/uL Hemoglobin 16.0 11.5-16.0 g/dL Hematocrit 48 35-52 % Mean Corpuscular Volume 90 80-99 fL Mean Corpuscular Hemoglobin 30 25-34 pg Mean Corpuscular Hemoglobin Concent 34 32-36 g/dL Red Cell Distribution Width 12.9 10.0-14.5 % Platelet Count 371 130-400 10^3/uL Mean Platelet Volume 10.3 9.0-12.2 fL Immature Granulocyte % (Auto) 0 % Neutrophils (%) (Auto) 72 42-75 % Lymphocytes (%) (Auto) 11 L 12-44 % Monocytes (%) (Auto) 14 H 0-12 % Eosinophils (%) (Auto) 2 0-10 % Basophils (%) (Auto) 0 0-10 % Neutrophils # (Auto) 7.8 1.8-7.8 10^3/uL Lymphocytes # (Auto) 1.2 1.0-4.0 10^3/uL Monocytes # (Auto) 1.5 H 0.0-1.0 10^3/uL Eosinophils # (Auto) 0.3 0.0-0.3 10^3/uL Basophils # (Auto) 0.0 0.0-0.1 10^3/uL Immature Granulocyte # (Auto) 0.0 0.0-0.1 10^3/uL Sodium Level 135 135-145 MMOL/L Potassium Level 4.3 3.6-5.0 MMOL/L Chloride Level 100 98-107 MMOL/L Carbon Dioxide Level 20 L 21-32 MMOL/L Anion Gap 15 H 5-14 MMOL/L Blood Urea Nitrogen 17 7-18 MG/DL Creatinine 0.76 0.60-1.30 MG/DL Estimat Glomerular Filtration Rate 90 BUN/Creatinine Ratio 22 Glucose Level 260 H 70-105 MG/DL Calcium Level 7.9 L 8.5-10.1 MG/DL Corrected Calcium 7.9 L 8.5-10.1 MG/DL Total Bilirubin 0.6 0.1-1.0 MG/DL Aspartate Amino Transf (AST/SGOT) 31 5-34 U/L Alanine Aminotransferase (ALT/SGPT) 73 H 0-55 U/L Alkaline Phosphatase 151 H 40-136 U/L C-Reactive Protein 9.46 H <0.50 MG/DL Total Protein 6.9 6.4-8.2 GM/DL Albumin 4.0 3.2-4.5 GM/DL Lipase 17 8-78 U/L Lactic Acid Level 2.57 *H 0.50-2.00 MMOL/L My Orders Orders - PANCHAL,KOLE L DO Cbc With Automated Diff (07/02/21 14:55) Comprehensive Metabolic Panel (07/02/21 14:55) Lactic Acid Analyzer (07/02/21 14:55) Lipase (07/02/21 14:55) Crp Fs (07/02/21 14:55) Ondansetron Injection (Zofran Injectio (07/02/21 15:00) Ns Iv 1000 Ml (Sodium Chloride 0.9%) (07/02/21 14:55) Famotidine Injection (Pepcid Injection) (07/02/21 14:55) Acute Abd Series (07/02/21 14:55) Fentanyl Inj (Sublimaze Injection) (07/02/21 14:55) Ct Abdomen/Pelvis W (07/02/21 15:53) Iohexol Injection (Omnipaque 350 Mg/Ml 1 (07/02/21 16:00) Received Contrast (Hold Metformin- Contr (07/02/21 16:00) Sodium Chloride Flush (Catheter Flush Sy (07/02/21 16:00) Ns (Ivpb) (Sodium Chloride 0.9% Ivpb Bag (07/02/21 16:00) Medications Given in ED Current Medications Medications Dose Ordered Sig/Keira Route Start Time Stop Time Status Last Admin Dose Admin Iohexol 100 ml ONCE ONCE IV 07/02/21 16:00 07/02/21 16:07 DC 07/02/21 16:22 100 ML Ondansetron HCl 4 mg ONCE ONCE IVP 07/02/21 15:00 07/02/21 15:01 DC 07/02/21 15:05 4 MG Sodium Chloride 10 ml NEEDED PRN IV 07/02/21 16:00 07/02/21 16:22 10 ML Sodium Chloride 100 ml ONCE ONCE IV 07/02/21 16:00 07/02/21 16:07 DC 07/02/21 16:22 80 ML Vital Signs/I&O 07/02/21 14:47 Temp 36.8 Pulse 107 Resp 18 B/P (MAP) 158/69 (98) Pulse Ox 96 O2 Delivery Room Air Progress Progress Note : Progress Note Patient CT shows a small bowel obstruction versus ileus. I suspect patient likely has ileus however we will admit her for observation due to the potential early small bowel obstruction I discussed case with both Dr. Pérez who accepted patient and Dr. Wasserman surgery on-call for consultation. We will keep her n.p.o., give her IV fluids along with pain control and nausea medication. Patient stable and transferred to [facility] via EMS Diagnostic Imaging Diagonstic Imaging: Xray Plain Films/CT/US/NM/MRI: abdomen Comments Date of Exam:07/02/21 ACUTE ABD SERIES Indication: Abdominal pain with nausea, vomiting and diarrhea. Comparison: CT 10/20/2020. Discussion: AP view of the chest and supine and upright views of the abdomen and pelvis were obtained. The heart and lungs are normal. Gallbladder is surgically absent. Colon is mostly decompressed. There are a few prominent small bowel loops within the mid and left abdomen which are nonspecific and could be seen with mild ileus or early or partial obstruction. Recommend radiographic follow-up. No free air. No osseous abnormality. Impression: 1. Prominent small bowel loops within the mid left abdomen are nonspecific and could be seen with early obstruction or ileus. Diagonstic Imaging: CT Comments Date of Exam:07/02/21 CT ABDOMEN/PELVIS W PROCEDURE: CT abdomen and pelvis with contrast. TECHNIQUE: Multiple contiguous axial images were obtained through the abdomen and pelvis after administration of intravenous contrast. Auto Exposure Controls were utilized during the CT exam to meet ALARA standards for radiation dose reduction. All CT scans use one or more of the following dose optimizing techniques: automated exposure control, MA and/or KvP adjustment based on patient size and exam type or iterative reconstruction. INDICATION: Bowel obstruction, ileus, abdominal pain. COMPARISON: 10/20/2020. FINDINGS: There is fatty infiltration of the liver. Lung bases are clear. The gallbladder is surgically absent. There is a stable cystic mass on the tail of the pancreas. Overall, this has a smaller appearance. The remainder of the pancreas, adrenal glands, spleen and kidneys are unremarkable. Vascular structures are intact. There are a few slightly dilated loops of small bowel containing air-fluid levels, similar to the prior examination. This may represent a partial obstruction. There is no free air or free fluid. There is no abscess. The uterus is surgically absent. Urinary bladder is normal. The colon is unremarkable. IMPRESSION: 1. Partial small bowel obstruction versus ileus. This has a similar appearance to the prior examination. 2. Stable pancreatic cyst. 3. Surgically absent gallbladder and uterus. 4. No free air identified. Reviewed: Reviewed by Me, Reviewed/Discussed Departure Impression Primary Impression: SBO (small bowel obstruction) Additional Impressions: Nausea and vomiting Qualified Codes: R11.2 - Nausea with vomiting, unspecified Diarrhea Qualified Codes: R19.7 - Diarrhea, unspecified Disposition: 62 DISC/XFER TO IRF Condition: Stable Admissions Decision to Admit Reason: Admit from ER (General) Decision to Admit/Date: Jul 02, 2021 Time/Decision to Admit Time: 17:00 Departure-Patient Inst. Referrals: BRYAN HINOJOSA MD (PCP/Family) Primary Care Physician KOLE PANCHAL DO Jul 02, 2021 14:47
[2021-07-02] MEDS ORDERED: fentaNYL INJ 100 MCG/2 ML AMP IVP STA (14:55)
[2021-07-02] MEDS ORDERED: NS IV 1000 ML 1,000 ML IV STA ×2 (14:55→17:07)
[2021-07-02] MEDS ORDERED: FAMOTIDINE 20MG/2ML IV (PEPCID) IV STA (14:55)
[2021-07-02 14:59] LABS: BASOPHILS % (AUTO) 0 % (0-10); EOSINOPHILS # (AUTO) 0.3 10^3/uL (0.0-0.3); EOSINOPHILS % (AUTO) 2 % (0-10); HEMATOCRIT 48 % (35-52); LYMPHOCYTES # (AUTO) 1.2 10^3/uL (1.0-4.0); LYMPHOCYTES % (AUTO) 11 % (12-44); MEAN CORPUSCULAR HEMOGLOBIN 30 pg (25-34); MEAN CORPUSCULAR HGB CONC 34 g/dL (32-36); MEAN CORPUSCULAR VOLUME 90 fL (80-99); MEAN PLATELET VOLUME 10.3 fL (9.0-12.2); MONOCYTES # (AUTO) 1.5 10^3/uL (0.0-1.0); MONOCYTES % (AUTO) 14 % (0-12); NEUTROPHILS # (AUTO) 7.8 10^3/uL (1.8-7.8); NEUTROPHILS % (AUTO) 72 % (42-75); PLATELET COUNT 371 10^3/uL (130-400); WHITE BLOOD COUNT 10.8 10^3/uL (4.3-11.0)
[2021-07-02] MEDS ORDERED: ONDANSETRON 4 MG/2 ML (SDV) Z0FRAN IVP ONE (15:00)
[2021-07-02 15:22] LABS: BILIRUBIN,TOTAL 0.6 MG/DL (0.1-1.0); CALCIUM 7.9 MG/DL (8.5-10.1); CREATININE SERUM 0.76 MG/DL (0.60-1.30); POTASSIUM 4.3 MMOL/L (3.6-5.0); TOTAL PROTEIN 6.9 GM/DL (6.4-8.2)
--- NOTE | 2021-07-02 15:39 | Diagnostic Imaging Report ---
Indication: Abdominal pain with nausea, vomiting and diarrhea. Comparison: CT 10/20/2020. Discussion: AP view of the chest and supine and upright views of the abdomen and pelvis were obtained. The heart and lungs are normal. Gallbladder is surgically absent. Colon is mostly decompressed. There are a few prominent small bowel loops within the mid and left abdomen which are nonspecific and could be seen with mild ileus or early or partial obstruction. Recommend radiographic follow-up. No free air. No osseous abnormality. Impression: 1. Prominent small bowel loops within the mid left abdomen are nonspecific and could be seen with early obstruction or ileus. Dictated by: Dictated on workstation # [id number]
[2021-07-02] MEDS ORDERED: IOHEXOL 350 MG/ML 100 ML (OMNIPAQUE 350) VIAL IV ONE (16:00)
[2021-07-02] MEDS ORDERED: HOLD METFORMIN - RECEIVED CONTRAST 20 ML VIAL IV SCH (16:00)
[2021-07-02] MEDS ORDERED: NS 100 ML (IVPB) BAG IV ONE (16:00)
[2021-07-02] MEDS ORDERED: CATHETER FLUSH 10 ML SYR IV PRN (16:00)
--- NOTE | 2021-07-02 16:41 | Diagnostic Imaging Report ---
PROCEDURE: CT abdomen and pelvis with contrast. TECHNIQUE: Multiple contiguous axial images were obtained through the abdomen and pelvis after administration of intravenous contrast. Auto Exposure Controls were utilized during the CT exam to meet ALARA standards for radiation dose reduction. All CT scans use one or more of the following dose optimizing techniques: automated exposure control, MA and/or KvP adjustment based on patient size and exam type or iterative reconstruction. INDICATION: Bowel obstruction, ileus, abdominal pain. COMPARISON: 10/20/2020. FINDINGS: There is fatty infiltration of the liver. Lung bases are clear. The gallbladder is surgically absent. There is a stable cystic mass on the tail of the pancreas. Overall, this has a smaller appearance. The remainder of the pancreas, adrenal glands, spleen and kidneys are unremarkable. Vascular structures are intact. There are a few slightly dilated loops of small bowel containing air-fluid levels, similar to the prior examination. This may represent a partial obstruction. There is no free air or free fluid. There is no abscess. The uterus is surgically absent. Urinary bladder is normal. The colon is unremarkable. IMPRESSION: 1. Partial small bowel obstruction versus ileus. This has a similar appearance to the prior examination. 2. Stable pancreatic cyst. 3. Surgically absent gallbladder and uterus. 4. No free air identified. Dictated by: Dictated on workstation # [id number]
[2021-07-02] MEDS ORDERED: PROMETHAZINE INJ 25 MG/ML (PHENERGAN) AMP IM PRN (17:45)
[2021-07-02] MEDS ORDERED: ENALAPRILAT 2.5 MG/2 ML (VASOTEC) VIAL IV PRN (17:45)
[2021-07-02] MEDS ORDERED: NITROGLYCERIN 2% OINT 1 GM UNIT DOSE PACKET TOP PRN (17:45)
[2021-07-02] MEDS ORDERED: morphine INJ 4 MG/ML 1 ML (VIAL/SYRINGE) ONE (19:39)
[2021-07-02 19:40] VITALS: BP 134/69
[2021-07-02] MEDS: morphine INJ 4 MG/ML 1 ML (VIAL/SYRINGE) IV PRN (19:42)
[2021-07-02] MEDS: NS IV 1000 ML 1,000 ML IV SCH (19:42)
[2021-07-02] MEDS: inSUlin ASPART (NovoLOG) 1 UNIT/0.01 ML (CHARGE PER UNIT) SC SCH (19:43)
[2021-07-02 20:01] VITALS: BP 158/69
[2021-07-02] MEDS ORDERED: RT-ALBUTEROL/IPRATROPIUM 3 ML (DUONEB) VIAL INH PRN (20:15)
[2021-07-02] MEDS: diphenhydrAMINE 50 MG/ML INJ (BENADRYL) IVP PRN (21:08)
[2021-07-02] MEDS: ONDANSETRON 4 MG/2 ML (SDV) Z0FRAN IV PRN (21:08)
[2021-07-02] MEDS: ENOXAPARIN 40 MG/0.4 ML (LOVENOX) SYR SC SCH (21:08)
[2021-07-03] MEDS: LORazepam INJ 2 MG/ML (ATIVAN) VIAL IVP PRN ×2 (01:07→21:36)
[2021-07-03 01:10] VITALS: BP 114/58
[2021-07-03] MEDS: NS IV 1000 ML 1,000 ML IV SCH ×4 (03:48→21:26)
[2021-07-03 04:00] VITALS: BP 129/66
[2021-07-03] MEDS: morphine INJ 4 MG/ML 1 ML (VIAL/SYRINGE) IV PRN (04:41)
[2021-07-03 05:16] LABS: BASOPHILS % (AUTO) 0 % (0-10); EOSINOPHILS # (AUTO) 0.3 10^3/uL (0.0-0.3); EOSINOPHILS % (AUTO) 3 % (0-10); HEMATOCRIT 40 % (35-52); HEMOGLOBIN 13.1 g/dL (11.5-16.0); LYMPHOCYTES # (AUTO) 2.8 10^3/uL (1.0-4.0); LYMPHOCYTES % (AUTO) 25 % (12-44); MEAN CORPUSCULAR HEMOGLOBIN 30 pg (25-34); MEAN CORPUSCULAR HGB CONC 33 g/dL (32-36); MEAN CORPUSCULAR VOLUME 92 fL (80-99); MONOCYTES # (AUTO) 1.1 10^3/uL (0.0-1.0); MONOCYTES % (AUTO) 10 % (0-12); NEUTROPHILS # (AUTO) 6.9 10^3/uL (1.8-7.8); NEUTROPHILS % (AUTO) 62 % (42-75); PLATELET COUNT 270 10^3/uL (130-400); WHITE BLOOD COUNT 11.2 10^3/uL (4.3-11.0)
[2021-07-03] MEDS: inSUlin ASPART (NovoLOG) 1 UNIT/0.01 ML (CHARGE PER UNIT) SC SCH ×4 (05:24→20:36)
[2021-07-03 05:25] LABS: ALBUMIN 3.4 GM/DL (3.2-4.5); POTASSIUM 3.3 MMOL/L (3.6-5.0)
[2021-07-03 05:27] LABS: CALCIUM 7.5 MG/DL (8.5-10.1)
[2021-07-03 05:28] LABS: TOTAL PROTEIN 5.8 GM/DL (6.4-8.2)
[2021-07-03 05:30] LABS: BILIRUBIN,TOTAL 0.5 MG/DL (0.1-1.0)
[2021-07-03 05:31] LABS: CREATININE SERUM 0.79 MG/DL (0.60-1.30)
[2021-07-03] MEDS ORDERED: MAGNESIUM 1 GM/100 ML IVPB 100 ML IV ONE (06:45)
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
[2021-07-03] MEDS: POTASSIUM CL 10MEQ/50ML IVPB 50 ML IV SCH ×4 (06:54→10:06)
[2021-07-03 08:00] VITALS: BP 120/57
[2021-07-03] MEDS: PANTOPRAZOLE 40 MG (PROTONIX) VIAL IV SCH (09:05)
--- NOTE | 2021-07-03 09:44 | Physical Therapy Evaluation ---
PT Evaluation-General Medical Diagnosis Admission Date Jul 02, 2021 at 18:57 Medical Diagnosis: SBO/N&V Onset Date: Jul 02, 2021 Therapy Diagnosis Therapy Diagnosis: weakness Precautions Precautions/Isolations: Standard Precautions Referral Physician: Beto Reason for Referral: Evaluation/Treatment Medical History Current History ER secondary to abdominal pain Reviewed History: Yes Social History Home: Single Level Current Living Status: Spouse Prior Prior Level of Function SCALE: Activities may be completed with or without assistive devices. 0-Oejpacdfoi-ouxlugf completes the activity by him/herself with no assistance from a helper. 5-Set-up or Clean-up Assistance-helper sets up or cleans up; patient completes activity. [place] assists only prior to or following the activity. 4-Supervision or Touching Assistance-helper provides verbal cues and/or touching/steadying and/or contact guard assistance as patient completes activity. Assistance may be provided throughout the activity or intermittently. 3-Partial/Moderate Assistance-helper does LESS THAN HALF the effort. [place] lifts, holds or supports trunk or limbs, but provides less than half the effort. 2-Substantial/Maximal Assistance-helper does MORE THAN HALF the effort. [place] lifts or holds trunk or limbs and provides more than half the effort. 2-Vejxbgoud-qegwyj does ALL the effort. Patient does none of the effort to complete the activity. Or, the assistance of 2 or more helpers is required for the patient to complete the activity. If activity was not attempted, code reason: 7-Patient Refused. 9-Not Applicable-not attempted and the patient did not perform the activity before the current illness, exacerbation or injury. 10-Not Attempted due to Environmental Limitations-(lack of equipment, weather restraints, etc.). 88-Not Attempted due to Medical Conditions or Safety Concerns. Bed Mobility: 6 Transfers (B,C,W/C): 6 Gait: 6 Stairs: 6 Indoor Mobility (Ambulation): Independent Stairs: Independent Prior Devices Use: None PT Evaluation-Current Subjective Patient up in restroom. Agrees to PT. Patient reports she is up in room and hallway independently. Pain Numeric Pain Scale: 8 Location: Lower Location Body Site: Abdomen Pain Description: Pressure Objective Patient Orientation: Normal For Age Attachments: IV ROM/Strength ROM Lower Extremities bilateral LE WFL Strength Lower Extremities 4/5 grossly bilateral LE Integumentary/Posture Integumentary refer to nursing notes Bowel Incontinence: No Bladder Incontinence: No Posture WFL Neuromuscular (Tone, Coordination, Reflexes) grossly intact Sensory Vision: Functional Hearing: Functional Transfers Roll Left to Right (QC): 6 Sit to Lying (QC): 6 Lying to Sitting/Side of Bed(Q: 6 Sit to Stand (QC): 6 Chair/Soo-di-Buzis Xfer(QC): 6 Toilet Transfer (QC): 6 Gait Does the Patient Walk?: Yes Mode of Locomotion: Walk Anticipated Mode of Locomotion: Walk Walk 10 feet (QC): 6 Walk 50 ft with 2 Turns(QC): 6 Walk 150 ft (QC): 6 Distance: 500' Gait Assistive Device: None Comments/Gait Description slow, steady functional gait sequence Balance Sitting Static: Normal Sitting Dynamic: Normal Standing Static: Normal Standing Dynamic: Normal Assessment/Needs 61 y.o. female, is currently at [facility] with all gross motor skills and does not require skilled PT intervention. Rehab Potential: Fair PT Plan Treatment/Plan Treatment Plan: Discontinue PT, goals met Treatment Duration: Jul 03, 2021 Frequency: 1 time per week Estimated Hrs Per Day: .25 hour per day Patient and/or Family Agrees t: Yes Time/GCodes Time In: 816 Time Out: 829 Total Billed Treatment Time: 13 [facility] COSTA JIMENEZ PT Jul 03, 2021 09:44
[2021-07-03] MEDS ORDERED: morphine INJ 4 MG/ML 1 ML (VIAL/SYRINGE) IV PRN (09:45)
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
--- NOTE | 2021-07-03 11:07 | Diagnostic Imaging Report ---
INDICATION: Small bowel obstruction. TIME OF EXAM: 9:55 a.m. COMPARISON: Comparison is made with prior radiograph of the abdomen from 07/02/2021. FINDINGS: There are surgical clips in the right upper quadrant. Bowel gas pattern has improved since one day earlier. There is less small bowel distention on today's study. No pathologic calcifications are seen. There is no free air. IMPRESSION: Improving bowel gas pattern when compared with examination one day earlier. Dictated by: Dictated on workstation # [id number]
[2021-07-03 11:57] VITALS: BP 123/58
--- NOTE | 2021-07-03 12:01 | Occupational Therapy Eval ---
OT Evaluation-General/PLF Medical Diagnosis Admission Date Jul 02, 2021 at 18:57 Medical Diagnosis: SBO/N&V Onset Date: Jul 02, 2021 Therapy Diagnosis Therapy Diagnosis: reduced endurance Precautions Precautions/Isolations: Standard Precautions Referral Physician: Beto Alvarado Reason: Evaluation/Treatment Medical History Current History Pt presents with abdominal pain, n/v, and diarrhea. CT reveals SBO vs Ileus. She is currently NPO, possibility of exploratory laparoscopy. Per patient, she lives with her spouse in a single story home. She was indep with adls and iadls prior to admission. She does not use any AD for mobility. Social History Home: Single Level Current Living Status: Spouse ADL-Prior Level of Function SCALE: Activities may be completed with or without assistive devices. 0-Xwnnhmdznb-llktnvc completes the activity by him/herself with no assistance from a helper. 5-Set-up or Clean-up Assistance-helper sets up or cleans up; patient completes activity. [place] assists only prior to or following the activity. 4-Supervision or Touching Assistance-helper provides verbal cues and/or touching/steadying and/or contact guard assistance as patient completes activity. Assistance may be provided throughout the activity or intermittently. 3-Partial/Moderate Assistance-helper does LESS THAN HALF the effort. [place] lifts, holds or supports trunk or limbs, but provides less than half the effort. 2-Substantial/Maximal Assistance-helper does MORE THAN HALF the effort. [place] lifts or holds trunk or limbs and provides more than half the effort. 1-Sxbwswxsj-eejrdj does ALL the effort. Patient does none of the effort to complete the activity. Or, the assistance of 2 or more helpers is required for the patient to complete the activity. If activity was not attempted, code reason: 7-Patient Refused. 9-Not Applicable-not attempted and the patient did not perform the activity before the current illness, exacerbation or injury. 10-Not Attempted due to Environmental Limitations-(lack of equipment, weather restraints, etc.). 88-Not Attempted due to Medical Conditions or Safety Concerns. Self Care: Independent Functional Cognition: Independent DME/Equipment: Bath Chair, Tub/Shower OT Current Status Subjective Pt reports pain in abdomen, RN aware. agreeable to treatment. Appearance Pt left sitting in recliner, all needs within reach. RN in room at OT departure. Mental Status/Objective Patient Orientation: Person, Place, Situation Attachments: IV Current Glasses/Contacts: Yes Hearing Aids: No Dentures/Partials: No Hand Dominance: Right Upper Extremity ROM WNL Upper Extremity Strength Not tested due to c/o abdominal pain. ADL-Treatment Eating (QC): 88 (NPO, anticipate indep with task) Oral Hygiene (QC): 6 Lower Body Dressing (QC): 6 On/Off Footwear (QC): 6 Toileting Hygiene (QC): 6 Pt sleeping in bed at OT arrival. Easy to waken. Able to perform all bed mobility independently. She donned bilateral socks without difficulty. Sit<>stand: indep. Pt ambulated to/from bathroom with supervision for safety with IV pole. No unsteadiness. She stood at the sink to brush teeth, no assist or cues for safety needed. She then performed toilet transfer and all steps of toileting without assist. Pt denies any concerns regarding self cares. No OT services warranted at this time. Education OT Patient Education: Purpose of tx/functional activities Teaching Recipient: Patient Teaching Methods: Discussion Response to Teaching: Verbalize Understanding, Return Demonstration OT Housing Specialist Goals Housing Specialist Goals 1=Demonstrate adherence to instructed precautions during ADL tasks. 2=Patient will verbalize/demonstrate understanding of assistive devices/modifications for ADL. 3=Patient will improve strength/tolerance for activity to enable patient to perform ADL's. OT Education/Plan Problem List/Assessment Assessment: No Skilled OT Needs ID'd Discharge Recommendations Plan/Recommendations: Discontinue OT Therapy Discharge Recommendati: Home & Family Treatment Plan/Plan of Care Treatment,Training & Education: Yes Patient would benefit from OT for education, treatment and training to promote independence in ADL's, mobility, safety and/or upper extremity function for ADL's. Plan of Care: ADL Retraining Treatment Duration: Jul 03, 2021 Frequency: 1 time per week Estimated Hrs Per Day: .25 hour per day Agreement: Yes Time/GCodes Start Time: 11:37 Stop Time: 11:55 Total Time Billed (hr/min): 18 Billed Treatment Time 1 visit Jessika Phillips OT Jul 03, 2021 12:01
[2021-07-03] MEDS ORDERED: PREG150C46 PO (13:21)
[2021-07-03] MEDS ORDERED: SUCR1ORA15 PO (13:21)
[2021-07-03] MEDS ORDERED: LORA-877 PO (13:22)
[2021-07-03] MEDS ORDERED: ONDA8TAB13 PO (13:23)
[2021-07-03] MEDS ORDERED: META800T PO (13:27)
[2021-07-03] MEDS ORDERED: ASCO500T17 PO (13:28)
[2021-07-03] MEDS ORDERED: NF-VITD400 PO (13:28)
[2021-07-03] MEDS ORDERED: LACT1CAP62 PO (13:29)
[2021-07-03] MEDS ORDERED: HYDROcodone/APAP 5 MG/325 MG (LORTAB) TAB PO PRN (15:00)
[2021-07-03 16:30] VITALS: BP 126/60
[2021-07-03 20:15] VITALS: BP 118/56
[2021-07-03] MEDS: ENOXAPARIN 40 MG/0.4 ML (LOVENOX) SYR SC SCH (21:24)
[2021-07-03] MEDS ORDERED: rOPINIRole 1 MG (REQUIP) TABLET PO ONE (23:30)
[2021-07-04] VITALS: BP 142/68
[2021-07-04] MEDS: diphenhydrAMINE 50 MG/ML INJ (BENADRYL) IVP PRN ×2 (00:27→12:16)
[2021-07-04 03:43] VITALS: BP 125/64
[2021-07-04 05:33] LABS: BASOPHILS % (AUTO) 0 % (0-10); EOSINOPHILS # (AUTO) 0.3 10^3/uL (0.0-0.3); EOSINOPHILS % (AUTO) 3 % (0-10); HEMATOCRIT 35 % (35-52); HEMOGLOBIN 11.6 g/dL (11.5-16.0); LYMPHOCYTES # (AUTO) 3.7 10^3/uL (1.0-4.0); LYMPHOCYTES % (AUTO) 43 % (12-44); MEAN CORPUSCULAR HEMOGLOBIN 30 pg (25-34); MEAN CORPUSCULAR HGB CONC 33 g/dL (32-36); MEAN CORPUSCULAR VOLUME 91 fL (80-99); MEAN PLATELET VOLUME 10.6 fL (9.0-12.2); MONOCYTES # (AUTO) 0.7 10^3/uL (0.0-1.0); MONOCYTES % (AUTO) 8 % (0-12); NEUTROPHILS % (AUTO) 46 % (42-75); PLATELET COUNT 256 10^3/uL (130-400); WHITE BLOOD COUNT 8.7 10^3/uL (4.3-11.0)
[2021-07-04] MEDS: NS IV 1000 ML 1,000 ML IV SCH ×2 (05:39→12:16)
[2021-07-04 05:55] LABS: ALBUMIN 3.1 GM/DL (3.2-4.5); POTASSIUM 3.3 MMOL/L (3.6-5.0)
[2021-07-04 05:57] LABS: CALCIUM 7.2 MG/DL (8.5-10.1)
[2021-07-04 05:58] LABS: TOTAL PROTEIN 5.3 GM/DL (6.4-8.2)
[2021-07-04 06:00] LABS: BILIRUBIN,TOTAL 0.3 MG/DL (0.1-1.0)
[2021-07-04 06:01] LABS: CREATININE SERUM 0.61 MG/DL (0.60-1.30)
[2021-07-04] MEDS: inSUlin ASPART (NovoLOG) 1 UNIT/0.01 ML (CHARGE PER UNIT) SC SCH ×2 (06:19→11:00)
[2021-07-04] MEDS ORDERED: LEVOTHYROXINE 100 MCG (LEVOTHROID) TAB PO SCH (06:30)
[2021-07-04] MEDS ORDERED: MAGNESIUM 1 GM/100 ML IVPB 100 ML IV ONE (06:45)
[2021-07-04] MEDS: SUCRALFATE 1 GM (CARAFATE) TAB PO SCH ×2 (07:02→11:00)
[2021-07-04 07:46] VITALS: BP 141/66
--- NOTE | 2021-07-04 07:50 | Progress Note - Surgery ---
ARANZA GRANGER 07/04/21 0750: Subjective Date Seen by a Provider: Jul 04, 2021 Time Seen by a Provider: 07:00 Subjective/Events-last exam Pt very tired, states restless leg kept her up all night. Dr. Pérez restarted her ropinerole. Pt states she is in no pain, just feels bloated. She has no N/V. Her last bowel movement was yesterday morning. She states it was small and green, was not diarrhea, and that there was no blood in the stool. The pt is passing gas and belching. She does say that her urine smells. There is no visible blood, but she is concerned about some sort of infection. Her output was low yesterday (200mL total). She was started on 1000mL IV and she has had 300mL this morning. Dr. Ashby saw her yesterday. She has an outpatient appointment with him for an implantable loop recorder. She is on CLD and ate a popsicle last night. The pt is reluctant to eat any of her breakfast, as it "looks gross." She states she is going home "one way or another" today. Pt denies CP, palpitations, fever, and SOB currently. Review of Systems General: No Chills; Fatigue, Malaise HEENT: Head Aches; No Visual Changes Pulmonary: No Dyspnea; Cough Cardiovascular: No: Chest Pain, Palpitations Gastrointestinal: No: Nausea, Vomiting, Abdominal Pain, Diarrhea Genitourinary: No Dysuria, No Hematuria; Other (says her urine has an odor) Musculoskeletal: neck pain (from pillow), foot pain (old heel injury) Neurological: No: Weakness, Change in speech Focused Exam Lactate Level 07/02/21 15:02: Lactic Acid Level 2.57*H 07/03/21 06:50: Lactic Acid Level 1.13 Respiratory: Lungs Clear, Normal Breath Sounds, No Respiratory Distress Cardiovascular: Regular Rate, Rhythm, No Murmur Peripheral Pulses: 2+ Radial Pulses (R), 2+ Radial Pulses (L) Skin: normal color, warm/dry Objective Exam Vital Signs Date Time Temp Pulse Resp B/P (MAP) Pulse Ox O2 Delivery O2 Flow Rate FiO2 07/04/21 07:46 36.4 75 18 141/66 (91) 97 Room Air 07/04/21 03:43 37.3 73 16 125/64 (84) 96 Room Air 07/04/21 00:00 36.0 85 20 142/68 (92) 97 Room Air 07/03/21 20:15 36.6 77 18 118/56 (76) 98 Room Air 07/03/21 20:00 Room Air 07/03/21 16:30 36.8 79 18 126/60 (82) 97 Room Air 07/03/21 11:57 37.1 82 18 123/58 (79) 98 Room Air 07/03/21 09:00 Room Air 07/03/21 08:00 36.7 80 18 120/57 (78) 98 Room Air I & O 07/04/21 06:59 Intake Total 2400 ml Output Total 500 ml Balance 1900 ml Capillary Refill : Less Than 3 Seconds General Appearance: No Apparent Distress, Obese Respiratory: Lungs Clear, No Accessory Muscle Use, No Respiratory Distress Cardiovascular: Regular Rate, Rhythm, No Murmur Peripheral Pulses: 2+ Radial Pulses (R), 2+ Radial Pulses (L) Gastrointestinal: non tender, distended Extremity: Pedal Edema, Swelling (near old heel injury) Neurologic/Psychiatric: Alert, Oriented x3, Normal Mood/Affect Skin: Normal Color, Warm/Dry Lymphatic: No Adenopathy Results Lab Laboratory Tests 07/03/21 11:57: Glucometer 153H 07/03/21 20:21: Glucometer 149H 07/04/21 05:14: White Blood Count 8.7, Red Blood Count 3.85, Hemoglobin 11.6, Hematocrit 35, Mean Corpuscular Volume 91, Mean Corpuscular Hemoglobin 30, Mean Corpuscular Hemoglobin Concent 33, Red Cell Distribution Width 12.9, Platelet Count 256, Mean Platelet Volume 10.6, Immature Granulocyte % (Auto) 0, Neutrophils (%) (Auto) 46, Lymphocytes (%) (Auto) 43, Monocytes (%) (Auto) 8, Eosinophils (%) (Auto) 3, Basophils (%) (Auto) 0, Neutrophils # (Auto) 4.0, Lymphocytes # (Auto) 3.7, Monocytes # (Auto) 0.7, Eosinophils # (Auto) 0.3, Basophils # (Auto) 0.0, Immature Granulocyte # (Auto) 0.0, Sodium Level 137, Potassium Level 3.3L, Chloride Level 109H, Carbon Dioxide Level 20L, Anion Gap 8, Blood Urea Nitrogen 6L, Creatinine 0.61, Estimat Glomerular Filtration Rate 103, BUN/Creatinine Ratio 10, Glucose Level 149H, Calcium Level 7.2L, Corrected Calcium 7.9L, Total Bilirubin 0.3, Aspartate Amino Transf (AST/SGOT) 30, Alanine Aminotransferase (ALT/SGPT) 49, Alkaline Phosphatase 82, Total Protein 5.3L, Albumin 3.1L 07/04/21 05:15: Magnesium Level 1.7 Assessment/Plan Assessment/Plan Assessment/Plan Diffuse Abdominal pain- SBO vs ileus N/V/D GERD hx pancreatitis hx hemorrhoids T2DM HTN neuropathy restless leg syndrome Hgb dropped 11.6 from 13.1 yesterday WBC dec 8.7 from 11.2 yesterday Acute Abd series-- prominent small bowel loops within mid L abdomen; nonspecific, early obstruction or ileus Abd/pelvic CT- dilated loops small bowel with air-fluid levels; possible partial obstruction, no free air or fluid. Fatty infiltrate in liver, cystic mass in pancreatic tail, no gallbladder, no uterus Abd Xray- improved bowel gas pattern, less small bowel distention EKG- sinus rhythm, old anterior infarct, abnormal T lateral leads CLD- encourage intake IVFs Pain management as needed Has f/u appointment with Dr. Ashby for implant loop recorder Monitor labs and vitals Pt wants to be d/c home SAW SHAFER Awa DO 07/04/21 1141: Subjective Time Seen by a Provider: 11:26 Subjective/Events-last exam Pt seen and examined, states he abdominal pain is better and she wants to go home. Tolerating clears, but "they don't taste very good". Review of Systems General: No Chills; Fatigue, Malaise HEENT: Head Aches; No Visual Changes Pulmonary: No Dyspnea; Cough Cardiovascular: No: Chest Pain, Palpitations Gastrointestinal: Abdominal Pain; No: Nausea, Vomiting, Diarrhea Objective Exam General Appearance: No Apparent Distress, Obese Respiratory: Lungs Clear, Normal Breath Sounds, No Accessory Muscle Use, No Respiratory Distress Cardiovascular: Regular Rate, Rhythm, No Murmur Gastrointestinal: non tender, no organomegaly, distended Assessment/Plan Assessment/Plan Assessment/Plan bdominal pain- resolved probably ileus on CT N/V/D - resolved GERD hx pancreatitis hx hemorrhoids T2DM HTN neuropathy restless leg syndrome Hgb dropped 11.6 from 13.1 yesterday WBC dec 8.7 from 11.2 yesterday Acute Abd series-- prominent small bowel loops within mid L abdomen; nonspecific, early obstruction or ileus Abd/pelvic CT- dilated loops small bowel with air-fluid levels; possible partial obstruction, no free air or fluid. Fatty infiltrate in liver, cystic mass in pancreatic tail, no gallbladder, no uterus Abd Xray- improved bowel gas pattern, less small bowel distention EKG- sinus rhythm, old anterior infarct, abnormal T lateral leads CLD- encourage intake, IVFs, Pain management as needed - ok to d/c home today Has f/u appointment with Dr. Ashby for implant loop recorder Pt will need EGD/Colonoscopy as outpt Supervisory-Addendum Brief Verification & Attestation Participated in pt care: history, MDM, physical Personally performed: exam, history, MDM, supervision of care Care discussed with: Medical Student Procedures: n/a Verification and Attestation of Medical Student E/M Service A medical student performed and documented this service. I then reviewed and verified all information documented by the medical student and made modifications to such information, when appropriate. I personally performed a physical exam, medical decision making and then discussed any differences between the notes and made revisions as necessary to create one note. Saw Shafer , 07/04/21 , 11:41 ARANZA GRANGER Jul 04, 2021 07:50 SAW SHAFER DO Jul 04, 2021 11:41
--- NOTE | 2021-07-04 08:38 | Cardiology Progress Note ---
Progress Note-Cardiology Events since last exam Date Seen by Provider: Jul 04, 2021 Time Seen by Provider: 08:37 Events since last exam I am following her for preoperative cardiac evaluation for possible abdominal surgery if needed. She did not sleep well last night due to insomnia. Her nausea and vomiting have resolved. She wants to go home. She denies chest discomfort, dyspnea at rest, palpitations, syncope, or ankle edema. Certain portions of this document may have been dictated utilizing voice recog nition technology. Inherent to this technology, typographical and grammatical errors may exist. As much as I am diligent to identify and correct these mistakes, some errors may remain in the document. Vitals Last set of Vitals Signs Vital Signs 07/02/21 07/04/21 20:01 07:46 Temp 36.4 Pulse 75 Resp 18 B/P (MAP) 141/66 (91) Pulse Ox 97 O2 Delivery Room Air FiO2 21 Labs Labs Laboratory Tests 07/04/21 05:14 Exam Vital Signs Vital Signs Date Time Temp Pulse Resp B/P (MAP) Pulse Ox O2 Delivery O2 Flow Rate FiO2 07/04/21 07:46 36.4 75 18 141/66 (91) 97 Room Air 07/02/21 20:01 21 Physical Exam General: Alert. No acute distress. She is obese. Eye: No xanthelasma. HENT: Normocephalic. Neck: Jugular venous pressure does not appear elevated. Respiratory: Lungs are clear to auscultation. Respirations are non-labored. Breath sounds are equal. Symmetrical chest wall expansion. Cardiovascular: Normal rate. Regular rhythm. No murmur. No gallop. No edema. Gastrointestinal: Soft. Normal bowel sounds. Skin: Warm. Dry. Neurologic: Alert and oriented to person, place, time. Cranial nerves 3-11 grossly intact. Psychiatric: Cooperative. Appropriate mood & affect. Labs Laboratory Tests Test 07/03/21 11:57 07/03/21 20:21 07/04/21 05:14 07/04/21 05:15 Range/Units Glucometer 153 H 149 H 70-110 MG/DL White Blood Count 8.7 4.3-11.0 10^3/uL Red Blood Count 3.85 3.80-5.11 10^6/uL Hemoglobin 11.6 11.5-16.0 g/dL Hematocrit 35 35-52 % Mean Corpuscular Volume 91 80-99 fL Mean Corpuscular Hemoglobin 30 25-34 pg Mean Corpuscular Hemoglobin Concent 33 32-36 g/dL Red Cell Distribution Width 12.9 10.0-14.5 % Platelet Count 256 130-400 10^3/uL Mean Platelet Volume 10.6 9.0-12.2 fL Immature Granulocyte % (Auto) 0 % Neutrophils (%) (Auto) 46 42-75 % Lymphocytes (%) (Auto) 43 12-44 % Monocytes (%) (Auto) 8 0-12 % Eosinophils (%) (Auto) 3 0-10 % Basophils (%) (Auto) 0 0-10 % Neutrophils # (Auto) 4.0 1.8-7.8 10^3/uL Lymphocytes # (Auto) 3.7 1.0-4.0 10^3/uL Monocytes # (Auto) 0.7 0.0-1.0 10^3/uL Eosinophils # (Auto) 0.3 0.0-0.3 10^3/uL Basophils # (Auto) 0.0 0.0-0.1 10^3/uL Immature Granulocyte # (Auto) 0.0 0.0-0.1 10^3/uL Sodium Level 137 135-145 MMOL/L Potassium Level 3.3 L 3.6-5.0 MMOL/L Chloride Level 109 H 98-107 MMOL/L Carbon Dioxide Level 20 L 21-32 MMOL/L Anion Gap 8 5-14 MMOL/L Blood Urea Nitrogen 6 L 7-18 MG/DL Creatinine 0.61 0.60-1.30 MG/DL Estimat Glomerular Filtration Rate 103 BUN/Creatinine Ratio 10 Glucose Level 149 H 70-105 MG/DL Calcium Level 7.2 L 8.5-10.1 MG/DL Corrected Calcium 7.9 L 8.5-10.1 MG/DL Total Bilirubin 0.3 0.1-1.0 MG/DL Aspartate Amino Transf (AST/SGOT) 30 5-34 U/L Alanine Aminotransferase (ALT/SGPT) 49 0-55 U/L Alkaline Phosphatase 82 40-136 U/L Total Protein 5.3 L 6.4-8.2 GM/DL Albumin 3.1 L 3.2-4.5 GM/DL Magnesium Level 1.7 1.6-2.4 MG/DL Diagnosis/Problems Diagnosis/Problems (1) Preoperative cardiovascular examination Assessment & Plan: She is now taking clear liquids. She is adamant that she wants to go home today. If for some reason she needs abdominal surgery, based upon the patient's overall clinical status and the results of the most recent, pertinent cardiac testing, she should be at low risk of a perioperative cardiac event while undergoing any abdominal surgery she may need. (2) Syncope Assessment & Plan: She has not had any recurrent syncope but still has intermittent lightheaded spells. Once she is discharged from this acute, noncardiac illness, I will plan to see her in the office in follow-up to discuss whether or not she should proceed with an implantable loop recorder. (3) Left bundle branch block Assessment & Plan: This appears to be a chronic problem for the patient. She did undergo a nuclear stress test in 2020 that was essentially normal. No additional testing is indicated for the left bundle branch block at this time. (4) Mixed hyperlipidemia Assessment & Plan: She is now taking clear liquids. I will restart her outpatient dose of atorvastatin. (5) Morbid obesity Assessment & Plan: She needs to work on weight loss. KASIA ESPINAL JR, MD Jul 04, 2021 08:38
[2021-07-04] MEDS: POTASSIUM CL 10MEQ/50ML IVPB 50 ML IV SCH ×4 (08:42→12:28)
[2021-07-04] MEDS: PANTOPRAZOLE 40 MG (PROTONIX) VIAL IV SCH (08:43)
[2021-07-04] MEDS ORDERED: LACTOBACILLUS ACIDOPHILUS (PROBIOTIC) CAPSULE PO SCH (09:00)
[2021-07-04] MEDS ORDERED: PREGABALIN 150 MG (LYRICA) CAPSULE PO SCH (09:00)
[2021-07-04] MEDS ORDERED: VENlafaxine 75 MG (EFFEXOR) TAB PO SCH (09:00)
[2021-07-04] MEDS ORDERED: rOPINIRole 1 MG (REQUIP) TABLET PO SCH ×2 (09:00→20:00)
--- NOTE | 2021-07-04 10:08 | Discharge Summary ---
Discharge Summary Hospital Course Was the Problem List Reviewed?: Yes Problems/Dx: (1) Preoperative cardiovascular examination (2) Syncope (3) Left bundle branch block (4) Mixed hyperlipidemia (5) Morbid obesity Hospital Course Date of Admission: Jul 02, 2021 at 18:57 Admission Diagnosis : Family Physician/Provider: Sanket James MD Date of Discharge: 07/04/21 Discharge Diagnosis: Abdominal pain, abdominal distention, ileus Hospital Course: CIRA ROSE 07/04/21 1104: Hospital Course: This is a 61 yo WF who was transferred to [facility] from [facility] on 07/02/2021 with abdominal pain and distension. Symptoms started on 07/01/2021 which also included nausea, vomiting, and diarrhea. History of of pancreatitis, pancreatic cyst, GERD, Diabetes, HTN. Surgical history of Cholecystectomy, Hysterectomy, thyroidectomy, cataract removal, and orthopedic surgery for foot. For pancreas and liver issues, she sees [facility] on a regular basis. Workup on 07/[address] scan showed probable small bowel obstruction. Initially, lactic acid was elevated at 2.57, and glucose was elevated at 185. Pt was placed NPO and during her stay was managed for pain and emesis with Morphine, Zofran, and Phenergan. Also placed on IV fluids. Patient found hypokalemic during her stay in which she was supplement with IV potassium. Following the patient, she continued to improve. Patient reported having some bowel movements that are getting thicker, passing gas, drinking fluids, ambul ating to the bathroom. WBC and Hgb remained stable and within normal range throughout the patient's stay. on 07/04 lactic acid level was normal at 1.13. Patient also stated that she was feeling much improved without abdominal pain at the end of her stay on 07/04. Labs and Pending Lab Test: Laboratory Tests 07/03/21 11:57: Glucometer 153H 07/03/21 20:21: Glucometer 149H 07/04/21 05:14: White Blood Count 8.7, Red Blood Count 3.85, Hemoglobin 11.6, Hematocrit 35, Mean Corpuscular Volume 91, Mean Corpuscular Hemoglobin 30, Mean Corpuscular Hemoglobin Concent 33, Red Cell Distribution Width 12.9, Platelet Count 256, Mean Platelet Volume 10.6, Immature Granulocyte % (Auto) 0, Neutrophils (%) (Auto) 46, Lymphocytes (%) (Auto) 43, Monocytes (%) (Auto) 8, Eosinophils (%) (Auto) 3, Basophils (%) (Auto) 0, Neutrophils # (Auto) 4.0, Lymphocytes # (Auto) 3.7, Monocytes # (Auto) 0.7, Eosinophils # (Auto) 0.3, Basophils # (Auto) 0.0, Immature Granulocyte # (Auto) 0.0, Sodium Level 137, Potassium Level 3.3L, Chloride Level 109H, Carbon Dioxide Level 20L, Anion Gap 8, Blood Urea Nitrogen 6L, Creatinine 0.61, Estimat Glomerular Filtration Rate 103, BUN/Creatinine Ratio 10, Glucose Level 149H, Calcium Level 7.2L, Corrected Calcium 7.9L, Total Bilirubin 0.3, Aspartate Amino Transf (AST/SGOT) 30, Alanine Aminotransferase (ALT/SGPT) 49, Alkaline Phosphatase 82, Total Protein 5.3L, Albumin 3.1L 07/04/21 05:15: Magnesium Level 1.7 Home Meds Active Reported Probiotic (Lactobacillus Acidophilus) 1 Each Capsule 1 Each PO DAILY Vitamin D3 (Vitamin D) 10 Mcg Tablet 10 Mcg PO DAILY Vitamin C (Ascorbic Acid) 500 Mg Tablet 500 Mg PO DAILY Metaxalone 800 Mg Tablet 800 Mg PO TID Ondansetron Odt (Ondansetron) 8 Mg Tab.rapdis 8 Mg PO Q8H PRN Claritin-D 24 Hour Tablet (Loratadine/Pseudoephedrine) 1 Each Tab.er.24h 1 Each PO DAILY PRN Pregabalin 150 Mg Capsule 150 Mg PO BID Sucralfate 1 Gm/10 Ml Oral.susp 10 Ml PO ACHS Metformin HCl ER (Metformin HCl) 500 Mg Tab.er.24h 1,000 Mg PO BID TAKES 2 (500MG) TAB Venlafaxine HCl 75 Mg Tab 75 Mg PO BID Atorvastatin Calcium 80 Mg Tablet 80 Mg PO DAILY Glimepiride 4 Mg Tablet 4 Mg PO DAILY Euthyrox (Levothyroxine Sodium) 200 Mcg Tablet 200 Mcg PO DAILY Lisinopril 20 Mg Tablet 20 Mg PO DAILY Ropinirole HCl 3 Mg Tablet 3 Mg PO TID Temazepam 15 Mg Capsule 45 Mg PO HS TAKES 3 (15MG) CAPS Trulicity (Dulaglutide) 0.75 Mg/0.5 Ml Pen.injctr 0.75 Mg SC THUR Esomeprazole Magnesium 40 Mg Capsule.dr 40 Mg PO BID Hydrocodone-Acetamin 10-325 mg (Hydrocodone/Acetaminophen) 1 Each Tablet 10-325 Mg PO Q6H PRN ALPRAZolam 0.25 Mg Tablet 0.25 Mg PO BID PRN Assessment/Pt Instructions PCP in 1 week Discharge Planning: <30 minutes discharge planning Discharge Instructions Discharge Diet: No Restrictions Activity as Tolerated: Yes Discharge Physical Examination Vital Signs Vital Signs Date Time Temp Pulse Resp B/P (MAP) Pulse Ox O2 Delivery O2 Flow Rate FiO2 07/04/21 08:00 Room Air 07/04/21 07:46 36.4 75 18 141/66 (91) 97 07/02/21 20:01 21 General Appearance: No Apparent Distress, WD/WN, Chronically ill Respiratory: Lungs Clear Cardiovascular: Regular Rate, Rhythm Neurologic/Psychiatric: Alert, Oriented x3, No Motor/Sensory Deficits, Normal Mood/Affect Allergies: Coded Allergies: nitrofurantoin (Unverified Allergy, Mild, COUGH, 06/18/19) PNEUMONIA TYPE SYMPTOMS, CHOKING A LITTLE Sulfa (Sulfonamide Antibiotics) (Unverified Adverse Reaction, Unknown, 10/20/20) Discharge Summary Date of Admission Jul 02, 2021 at 18:57 Date of Discharge Discharge Date: Jul 04, 2021 Admission Diagnosis Assessment: Small bowel obstruction versus ileus Abdominal pain History of pancreatic and liver biopsies Plan: Appreciate Dr. Wasserman Supportive care IV fluids Pain meds Discharge Diagnosis (1) Preoperative cardiovascular examination Assessment & Plan: She is now taking clear liquids. She is adamant that she wants to go home today. If for some reason she needs abdominal surgery, based upon the patient's overall clinical status and the results of the most recent, pertinent cardiac testing, she should be at low risk of a perioperative cardiac event while undergoing any abdominal surgery she may need. (2) Syncope Assessment & Plan: She has not had any recurrent syncope but still has intermittent lightheaded spells. Once she is discharged from this acute, noncardiac illness, I will plan to see her in the office in follow-up to discuss whether or not she should proceed with an implantable loop recorder. (3) Left bundle branch block Assessment & Plan: This appears to be a chronic problem for the patient. She did undergo a nuclear stress test in 2020 that was essentially normal. No additional testing is indicated for the left bundle branch block at this time. (4) Mixed hyperlipidemia Assessment & Plan: She is now taking clear liquids. I will restart her outpatient dose of atorvastatin. (5) Morbid obesity Assessment & Plan: She needs to work on weight loss. KARLA CHOI DO Jul 04, 2021 10:08
--- NOTE | 2021-07-04 11:04 | Progress Note ---
CIRA ROSE 07/04/21 1104: Progress Note Hospital Course: This is a 61 yo WF who was transferred to [facility] from [facility] on 07/02/2021 with abdominal pain and distension. Symptoms started on 07/01/2021 which also included nausea, vomiting, and diarrhea. History of of pancreatitis, pancreatic cyst, GERD, Diabetes, HTN. Surgical history of Cholecystectomy, Hysterectomy, thyroidectomy, cataract removal, and orthopedic surgery for foot. For pancreas and liver issues, she sees Hepatology on a regular basis. Workup on 07/[address] scan showed probable small bowel obstruction. Initially, lactic acid was elevated at 2.57, and glucose was elevated at 185. Pt was placed NPO and during her stay was managed for pain and emesis with Morphine, Zofran, and Phenergan. Also placed on IV fluids. Patient found hypokalemic during her stay in which she was supplement with IV potassium. Following the patient, she continued to improve. Patient reported having some bowel movements that are getting thicker, passing gas, drinking fluids, ambulating to the bathroom. WBC and Hgb remained stable and within normal range throughout the patient's stay. on 07/04 lactic acid level was normal at 1.13. Patient also stated that she was feeling much improved without abdominal pain at the end of her stay on 07/04. GHADA CHOI DO 07/05/21 0617: Supervisory-Addendum Brief Verification & Attestation Participated in pt care: history, MDM, physical Personally performed: exam, history, MDM, supervision of care Care discussed with: Medical Student Procedures: n/a Results interpretation: Verified all documentation Verification and Attestation of Medical Student E/M Service A medical student performed and documented this service in my presence. I reviewed and verified all information documented by the medical student and made modifications to such information, when appropriate. I personally performed the physical exam and medical decision making. Ghada Choi Jul 05, 2021,06:17 CIRA ROSE Jul 04, 2021 11:04 GHADA CHOI DO Jul 05, 2021 06:17
--- NOTE | 2021-07-04 11:42 | Discharge Inst-Surgical ---
Discharge Inst-Surgical Depart Medication/Instructions New, Converted or Re-Newed RX: Other Patient Instructions Follow up Appt: Make appointment for 1 week. [phone] Instructions: May shower in 24 hours, no tub bath or soaking. Use incentive spirometer at home as directed. Symptoms to Report: Appetite Changes, Extremity Discoloration, Numbness/Tingling, Swelling Increased, Bleeding Excessive, Eyesight Changes, Pain Increased, Urine Color Change, Constipation(Persistent), Fever over 101 degree F, Pain/Pressure in chest, Urinating Difficulty, Cough Up/Vomit Blood, Heart Beat Irreg/Pounding, Pain/Pressure in jaw, Cramps in feet or legs, Lightheadedness, Pain/Pressure in shoulder, Diarrhea(Persistent), Memory Changes Suddenly, Questions/Concerns, Weight gain consecutive days, Dizziness/Fainting, Nausea/Vomiting, Shortness of Breath, Weight gain over 2 pounds If questions or concerns contact your physician Or seek help at emergency department. Activity Activity as Tolerated: Yes Diet Discharge Diet: No Restrictions Diet After 24 Hours: Clear Liquid if Nauseous If Any Problems/Questions/Issu: Contact Your Physician, Go to Emergency Room Skin/Wound Care Infection Signs and Symptoms: Increased Swelling, Temperature Above 101 F Bathing Instructions: SHEREE Garay DO Jul 04, 2021 11:42
[2021-07-04] MEDS: ONDANSETRON 4 MG/2 ML (SDV) Z0FRAN IV PRN (12:16)
[2021-07-04] MEDS ORDERED: TEMAZEPAM 15 MG (RESTORIL) CAP PO SCH (21:00)
== END 2021-07-04 13:42 | disposition home or self-care (01) ==
LOC: EDUNIT# 14:44 → ER FS 14:46 → 4TH 18:57
PROVIDERS: ADMIT Internal Medicine; ATTEND Internal Medicine
DX: Z01.810 Encounter for preprocedural cardiovascular examination (principal); R55 Syncope and collapse; I44.7 Left bundle-branch block, unspecified; E78.2 Mixed hyperlipidemia; E66.01 Morbid (severe) obesity due to excess calories; K58.9 Irritable bowel syndrome, unspecified; K21.9 Gastro-esophageal reflux disease without esophagitis; R19.7 Diarrhea, unspecified; K56.609 Unspecified intestinal obstruction, unspecified as to partial versus complete obstruction; E87.6 Hypokalemia; I10 Essential (primary) hypertension; E11.40 Type 2 diabetes mellitus with diabetic neuropathy, unspecified; G25.81 Restless legs syndrome; Z68.39 Body mass index [BMI] 39.0-39.9, adult; Z87.19 Personal history of other diseases of the digestive system; Z79.899 Other long term (current) drug therapy; Z79.84 Long term (current) use of oral hypoglycemic drugs
CPT/HCPCS: 36415; 74018; 74022; 74177; 80053; 82947; 83605; 83690; 83735; 85025; 86141; 93005; G0378; Q9967